=== PATIENT | female | born 2000 | race Caucasian/White ===

== ENCOUNTER 2023-06-10 15:42 | Emergency (ER) | payer OTHER ==
[~2023-06-10] VITALS: Ht 175.3 cm; Wt 157.2 kg
[2023-06-10] MEDS ORDERED: HYDR50TA70 PO (18:59)
[2023-06-10 19:07] VITALS: BP 125/63; TEMP 98; O2SAT 99
[2023-06-10] MEDS: hydrOXYzine 50 MG TAB PO ONE (19:09)
== END 2023-06-10 19:13 | disposition home or self-care (01) ==
LOC: M ED 15:42
DX: L40.9 Psoriasis, unspecified (principal); Z79.811 Long term (current) use of aromatase inhibitors

== ENCOUNTER → 2023-07-26 | Outpatient (REF) | payer OTHER ==
[~2023-07-26] MED LIST: HYDR50TA70 PO
[2023-07-26 13:43] LABS: ALKALINE PHOSPHATASE 58 U/L (46-116); ALT/SGPT 23 U/L (7.0-40); AST/SGOT 19 U/L (<34); BILIRUBIN,TOTAL 0.7 MG/DL (0.3-1.2); BLOOD UREA NITROGEN 27 MG/DL (9-23); CALCIUM LEVEL 9.4 MG/DL (8.5-10.1); CARBON DIOXIDE LEVEL 27 MMOL/L (20-31); CHLORIDE LEVEL 105 MMOL/L (98-107); CHOLESTEROL LEVEL 127 MG/DL (<200); CHOLESTEROL RISK RATIO 3.29 (<5); CREATININE FOR GFR 0.81 MG/DL (0.55-1.30); GLUCOSE, FASTING 86 MG/DL (60-100); HDL CHOLESTEROL 38.6 MG/DL (>40); NON-HDL-C 88.4 MG/DL; POTASSIUM SERUM 5.1 MMOL/L (3.5-5.1); SODIUM LEVEL 140 MMOL/L (136-145); TRIGLYCERIDES LEVEL 167 MG/DL (<150)
[2023-07-26 13:46] LABS: HEMOGLOBIN A1c 4.8 % (4.0-6.0); TOTAL 25(OH) VITAMIN D 17.5 NG/ML (20.0-100.0)
[2023-07-26 13:49] LABS: THYROID STIMULATING HORMONE 3.676 uIU/ML (0.48-4.17)
[2023-07-26 14:12] LABS: HIV 1&2 SCREEN NEGATIVE (NEGATIVE)
[2023-07-26 14:20] LABS: HEPATITIS C VIRUS ABY INDEX < 0.02 INDEX (<0.8)
== END ==
LOC: M LAB REF 12:32
PROVIDERS: ATTEND Physician Assistant
DX: Z11.9 Encounter for screening for infectious and parasitic diseases, unspecified (principal); E66.01 Morbid (severe) obesity due to excess calories; E55.9 Vitamin D deficiency, unspecified